=== PATIENT | female | born 1960 | race Caucasian/White ===

== ENCOUNTER 2018-01-31 05:20 | Emergency (ER) | payer MEDICARE, BC ==
[~2018-01-31] VITALS: Ht 152.4 cm; Wt 72.6 kg
[~2018-01-31 05:20] MED LIST: ANDROGEL; ANDROGEL VG; ASPIRIN325 PO; ATIVAN0.5 MG PO; AUGMENTIN 875875 MG PO; CEPHALEXIN; COLACE100 MG PO; CORTEF; CORTEF 20 MG TA20 MG PO; CRINONE1.45 GM VG; DEPO-ESTRAD5 MG/1 ML IM; DHEA25 MG PO; DICLOXACILLIN250 M1 OR; FENTANYL 1100 MCG/HR TRANSDERM; INDOMETHACIN 5050 M1 PO; INDOMETHACIN 5050 MG PO; KEFLEX; KEPPRA 500 MG500 M1 PO; MEGESTROL ACETA40 MG PO; MEGESTROL40 MG/1 M1 GT; MUCINEX600 MG PO; NICOTINE TRANSDE7 MG TD; PERCOCET 10-321 EACH PO; PREDNISONE 10 M10 MG PO; PRILOSEC 20 MG20 MG PO; REMERON15 M1 PO; THYROID; TRAZODONE HCL100 MG PO; VALIUM5 MG PO; XANAX 0.25 MG0.25 MG PO; XANAX XR2 MG PO
[2018-01-31 06:50] VITALS: BP 114/80
== END 2018-01-31 06:55 | disposition home or self-care (01) ==
LOC: M.ERS 05:20
DX: R25.2 Cramp and spasm (principal); G47.00 Insomnia, unspecified; F41.9 Anxiety disorder, unspecified; F43.10 Post-traumatic stress disorder, unspecified; F17.210 Nicotine dependence, cigarettes, uncomplicated; Z88.6 Allergy status to analgesic agent; Z88.5 Allergy status to narcotic agent

== ENCOUNTER → 2018-05-04 | Outpatient (CLI) | payer MEDICARE, BC | LOC: M.ULTRA 11:30 | DX: N63.20 Unspecified lump in the left breast, unspecified quadrant (principal); R92.8 Other abnormal and inconclusive findings on diagnostic imaging of breast ==

== ENCOUNTER → 2018-06-05 | Outpatient (CLI) | payer MEDICARE, BC | LOC: M.NUC 05-15 14:11 | DX: M50.30 Other cervical disc degeneration, unspecified cervical region (principal); M17.11 Unilateral primary osteoarthritis, right knee ==

== ENCOUNTER 2018-09-06 23:34 | Emergency (ER) | payer MEDICARE, BC ==
[~2018-09-06] VITALS: Ht 152.4 cm; Wt 63.5 kg
[2018-09-06] MEDS ORDERED: METHOCARBAMOL750 MG PO (23:52)
[2018-09-07 00:37] LABS: URINE BILIRUBIN NEGATIVE (Negative); URINE BLOOD NEGATIVE (Negative); URINE CLARITY CLEAR; URINE COLOR YELLOW; URINE GLUCOSE-RANDOM NEGATIVE (Negative); URINE KETONES NEGATIVE (Negative); URINE LEUKOCYTES-REFLEX NEGATIVE (Negative); URINE NITRITE-REFLEX NEGATIVE (Negative); URINE PROTEIN NEGATIVE (Negative); URINE UROBILINOGEN 0.2 E.U./dl (0.2-1.0)
[2018-09-07 01:39] VITALS: BP 161/87
== END 2018-09-07 01:39 | disposition home or self-care (01) ==
LOC: M.ERS 23:34
PROVIDERS: Personal Emergency Response Attendant
DX: M53.3 Sacrococcygeal disorders, not elsewhere classified (principal); M25.552 Pain in left hip; F17.210 Nicotine dependence, cigarettes, uncomplicated; F41.9 Anxiety disorder, unspecified; Z90.710 Acquired absence of both cervix and uterus; Z88.5 Allergy status to narcotic agent

== ENCOUNTER 2020-06-22 19:58 | Emergency (ER) | payer OTHER ==
[~2020-06-22] VITALS: Ht 152.4 cm; Wt 77.1 kg
[~2020-06-22 19:58] MED LIST changes: +METHOCARBAMOL750 MG PO
[2020-06-22 21:03] LABS: URINE BILIRUBIN NEGATIVE (Negative); URINE BLOOD NEGATIVE (Negative); URINE CLARITY CLEAR; URINE COLOR STRAW; URINE GLUCOSE-RANDOM NEGATIVE (Negative); URINE KETONES NEGATIVE (Negative); URINE LEUKOCYTES 1+ (Negative); URINE NITRITE NEGATIVE (Negative); URINE PROTEIN NEGATIVE (Negative); URINE SPECIFIC GRAVITY <= 1.005 (1.005-1.030); URINE UROBILINOGEN 0.2 E.U./dl (0.2-1.0)
[2020-06-22 21:12] LABS: ABSOLUTE BASOPHILS 0.1 thou/uL (0.0-0.2); ABSOLUTE EOSINOPHILS 0.3 thou/uL (0.0-0.7); ABSOLUTE LYMPHOCYTES 2.9 thou/uL (0.8-5.3); ABSOLUTE MONOCYTES 0.6 thou/uL (0.0-1.2); ABSOLUTE NEUTROPHILS 8.1 thou/uL (1.6-8.1); EOSINOPHILS 2.2 %; HEMATOCRIT 46.2 % (37.0-47.0); HEMOGLOBIN 15.8 gm/dL (12.0-15.0); LYMPHOCYTES 23.8 %; MCH 31.3 pg (26.0-34.0); MCHC 34.2 g/dL (28.0-37.0); MCV 91.4 fL (80.0-100.0); MONOCYTES 5.4 %; MPV 7.3 fl. (7.2-11.1); NUCLEATED RBCS 0 /100WBC; PLATELET COUNT* 444 thou/uL (150-400); POLYS 67.6 %; RBC 5.05 mil/uL (4.20-5.00)
[2020-06-22 21:12] LABS: BACTERIA 1-9 Few /HPF (None Seen); CASTS None Seen /LPF (None Seen); CRYSTALS None Seen /LPF (None Seen); MUCUS None Seen strn/LPF (None Seen); SQUAMOUS 4-10 Moderate /LPF (0-3); URINE RBC None Seen /HPF (0-2); URINE WBC 0-5 Rare /HPF (0-5)
[2020-06-22 21:14] LABS: CALCIUM 9.2 mg/dL (8.5-10.1); POTASSIUM 3.7 mmol/L (3.5-5.1)
[2020-06-22 21:19] LABS: ALBUMIN 4.3 g/dL (3.4-5.0); TOTAL BILIRUBIN 0.3 mg/dL (<0.1-1.0); TOTAL PROTEIN 8.4 g/dL (6.4-8.2)
[2020-06-22 23:05] VITALS: BP 165/89
== END 2020-06-22 23:14 | disposition home or self-care (01) ==
LOC: M.ERS 19:58
PROVIDERS: Emergency Medicine
DX: M25.561 Pain in right knee (principal); R60.0 Localized edema; F41.9 Anxiety disorder, unspecified; F17.210 Nicotine dependence, cigarettes, uncomplicated; Z90.710 Acquired absence of both cervix and uterus; Z88.6 Allergy status to analgesic agent

== ENCOUNTER 2020-07-11 16:17 | Emergency (ER) | payer OTHER ==
[~2020-07-11] VITALS: Ht 152.4 cm; Wt 68.0 kg
[2020-07-11 16:39] LABS: URINE BILIRUBIN NEGATIVE (Negative); URINE BLOOD NEGATIVE (Negative); URINE CLARITY CLEAR; URINE COLOR STRAW; URINE GLUCOSE-RANDOM NEGATIVE (Negative); URINE KETONES NEGATIVE (Negative); URINE LEUKOCYTES-REFLEX NEGATIVE (Negative); URINE NITRITE-REFLEX NEGATIVE (Negative); URINE PROTEIN NEGATIVE (Negative); URINE SPECIFIC GRAVITY <= 1.005 (1.005-1.030); URINE UROBILINOGEN 0.2 E.U./dl (0.2-1.0)
[2020-07-11] MEDS ORDERED: MELOXICAM15 MG PO (16:44)
[2020-07-11 16:55] LABS: ABSOLUTE BASOPHILS 0.2 thou/uL (0.0-0.2); ABSOLUTE EOSINOPHILS 0.1 thou/uL (0.0-0.7); ABSOLUTE LYMPHOCYTES 4.4 thou/uL (0.8-5.3); ABSOLUTE MONOCYTES 0.9 thou/uL (0.0-1.2); ABSOLUTE NEUTROPHILS 8.9 thou/uL (1.6-8.1); BASOPHILS 1.5 %; HEMATOCRIT 45.3 % (37.0-47.0); HEMOGLOBIN 15.1 gm/dL (12.0-15.0); LYMPHOCYTES 30.3 %; MCH 30.3 pg (26.0-34.0); MCHC 33.3 g/dL (28.0-37.0); MCV 90.9 fL (80.0-100.0); MONOCYTES 5.9 %; MPV 7.4 fl. (7.2-11.1); NUCLEATED RBCS 0 /100WBC; PLATELET COUNT* 440 thou/uL (150-400); POLYS 61.3 %; RBC 4.98 mil/uL (4.20-5.00); RDW-CV 13.1 % (10.5-14.5); WBC 14.5 thou/uL (4.0-11.0)
[2020-07-11 17:00] LABS: CALCIUM 9.7 mg/dL (8.5-10.1); POTASSIUM 3.8 mmol/L (3.5-5.1)
[2020-07-11 17:10] LABS: ALBUMIN 4.4 g/dL (3.4-5.0); TOTAL BILIRUBIN 0.3 mg/dL (<0.1-1.0); TOTAL PROTEIN 8.3 g/dL (6.4-8.2)
[2020-07-11 17:19] LABS: AMP/METHAMP Negative (Negative); BARBITURATES Negative (Negative); BENZODIAZEPINES POSITIVE (Negative); COCAINE Negative (Negative); METHADONE Negative (Negative); OPIATES POSITIVE (Negative); PCP Negative (Negative); THC Negative (Negative)
[2020-07-11] MEDS ORDERED: SUPRAX400 M1 PO (18:07)
[2020-07-11] MEDS ORDERED: AZITHROMYCIN250 MG PO (18:07)
[2020-07-11 18:30] VITALS: BP 184/102
== END 2020-07-11 18:30 | disposition home or self-care (01) ==
LOC: M.ERS 16:17
PROVIDERS: Physician Assistant
DX: N89.8 Other specified noninflammatory disorders of vagina (principal); F17.210 Nicotine dependence, cigarettes, uncomplicated; Z90.710 Acquired absence of both cervix and uterus; Z88.5 Allergy status to narcotic agent; Z79.899 Other long term (current) drug therapy

== ENCOUNTER 2020-07-13 16:17 | Emergency (ER) | payer OTHER ==
[~2020-07-13] VITALS: Ht 152.4 cm; Wt 90.7 kg
[~2020-07-13 16:17] MED LIST changes: +AZITHROMYCIN250 MG PO; +MELOXICAM15 MG PO; +SUPRAX400 M1 PO
[2020-07-13] MEDS ORDERED: [UNRECOGNIZED DRUG - OTHER] (16:33)
[2020-07-13 16:51] LABS: ABSOLUTE BASOPHILS 0.2 thou/uL (0.0-0.2); ABSOLUTE EOSINOPHILS 0.1 thou/uL (0.0-0.7); ABSOLUTE LYMPHOCYTES 3.5 thou/uL (0.8-5.3); ABSOLUTE MONOCYTES 0.7 thou/uL (0.0-1.2); ABSOLUTE NEUTROPHILS 9.3 thou/uL (1.6-8.1); BASOPHILS 1.2 %; EOSINOPHILS 0.6 %; HEMOGLOBIN 15.2 gm/dL (12.0-15.0); LYMPHOCYTES 25.6 %; MCH 30.3 pg (26.0-34.0); MCV 91.8 fL (80.0-100.0); MONOCYTES 5.3 %; MPV 7.2 fl. (7.2-11.1); NUCLEATED RBCS 0 /100WBC; PLATELET COUNT* 456 thou/uL (150-400); POLYS 67.3 %; RBC 5.01 mil/uL (4.20-5.00); WBC 13.8 thou/uL (4.0-11.0)
[2020-07-13 17:02] LABS: APTT 25.4 Seconds (25.0-31.3); PROTIME 10.7 Seconds (9.20-11.50)
[2020-07-13 17:03] LABS: CREATININE 0.9 mg/dL (0.6-1.3); POTASSIUM 3.9 mmol/L (3.5-5.1)
[2020-07-13 17:11] LABS: ALBUMIN 4.2 g/dL (3.4-5.0); TOTAL BILIRUBIN 0.4 mg/dL (<0.1-1.0); TOTAL PROTEIN 8.4 g/dL (6.4-8.2)
[2020-07-13 17:19] VITALS: BP 196/116
== END 2020-07-13 17:20 | disposition home or self-care (01) ==
LOC: M.ERS 16:17
PROVIDERS: Family Medicine
DX: I10 Essential (primary) hypertension (principal); R45.1 Restlessness and agitation; Z76.5 Malingerer [conscious simulation]; F17.210 Nicotine dependence, cigarettes, uncomplicated; Z90.710 Acquired absence of both cervix and uterus

== ENCOUNTER 2020-07-18 07:21 | Emergency (ER) | payer OTHER ==
[~2020-07-18] VITALS: Ht 152.4 cm; Wt 76.5 kg
[~2020-07-18 07:21] MED LIST changes: +[UNRECOGNIZED DRUG - OTHER]
[2020-07-18] MEDS ORDERED: SPIRONOLACTONE100 M1 PO (07:28)
[2020-07-18 08:00] LABS: ABSOLUTE BASOPHILS 0.1 thou/uL (0.0-0.2); ABSOLUTE EOSINOPHILS 0.1 thou/uL (0.0-0.7); ABSOLUTE LYMPHOCYTES 2.5 thou/uL (0.8-5.3); ABSOLUTE MONOCYTES 0.7 thou/uL (0.0-1.2); EOSINOPHILS 1.6 %; HEMATOCRIT 42.4 % (37.0-47.0); HEMOGLOBIN 14.4 gm/dL (12.0-15.0); LYMPHOCYTES 26.2 %; MCH 30.5 pg (26.0-34.0); MCHC 33.8 g/dL (28.0-37.0); MCV 90.1 fL (80.0-100.0); MPV 7.1 fl. (7.2-11.1); NUCLEATED RBCS 0 /100WBC; PLATELET COUNT* 394 thou/uL (150-400); POLYS 64.2 %; RBC 4.71 mil/uL (4.20-5.00); WBC 9.4 thou/uL (4.0-11.0)
[2020-07-18 08:12] LABS: CALCIUM 9.6 mg/dL (8.5-10.1); CREATININE 0.9 mg/dL (0.6-1.3); POTASSIUM 3.7 mmol/L (3.5-5.1)
[2020-07-18 08:17] LABS: ALBUMIN 3.8 g/dL (3.4-5.0); TOTAL BILIRUBIN 0.5 mg/dL (<0.1-1.0); TOTAL PROTEIN 7.7 g/dL (6.4-8.2)
[2020-07-18] MEDS ORDERED: MECLIZINE HCL25 M1 PO (08:45)
[2020-07-18 09:11] VITALS: BP 149/77
--- NOTE | 2020-07-19 12:13 | EKG ---
[place] [address] ELECTROCARDIOGRAM REPORT Name: MONTY BROWN Room: [facility]#: [id number] Admission: 07/18/20 Attend Phys: Discharge: 07/18/20 Date of : 58 Date of Service: 07/18/20 0833 Report #: [id number] THIS REPORT FOR: //name// [facility] ED Test Date: 2020-07-18 Test Time: 08:33:07 Pat Name: MONTY BROWN Department: Room: Gender: Residential Worker: [facility] : 1960 Requested By: Jose Reed Order Number: [id number] MD: Justin Rueda Measurements Intervals [place] Rate: 69 P: 64 UT: 144 QRS: -27 QRSD: 95 T: 53 QT: 367 QTc: 393 Interpretive Statements Sinus rhythm Probable left atrial enlargement Inferior infarct, old Baseline wander in lead(s) V1,V5 Compared to ECG 07/17/2015 09:26:37 No significant changes Electronically Signed On 07-19-2020 12:12:52 CDT by Justin Rueda [email or web address] <ELECTRONICALLY SIGNED> By: Nimo Rueda MD, FAC 07/19/20 1212 Nimo Rueda MD, [facility] /EPI
== END 2020-07-18 09:12 | disposition home or self-care (01) ==
LOC: M.ERS 07:21
PROVIDERS: Emergency Medicine Emergency Medical Services
DX: H81.12 Benign paroxysmal vertigo, left ear (principal); I25.2 Old myocardial infarction; F41.9 Anxiety disorder, unspecified; F17.210 Nicotine dependence, cigarettes, uncomplicated; Z88.6 Allergy status to analgesic agent; Z79.899 Other long term (current) drug therapy; Z90.710 Acquired absence of both cervix and uterus

== ENCOUNTER 2020-07-22 22:11 | Emergency (ER) | payer OTHER, MEDICAID ==
[~2020-07-22] VITALS: Ht 152.4 cm; Wt 63.5 kg
[~2020-07-22 22:11] MED LIST changes: +MECLIZINE HCL25 M1 PO; +SPIRONOLACTONE100 M1 PO
[2020-07-22 23:24] VITALS: BP 160/85
== END 2020-07-22 23:24 | disposition home or self-care (01) ==
LOC: M.ERS 22:11
DX: F23 Brief psychotic disorder (principal); F17.210 Nicotine dependence, cigarettes, uncomplicated; Z88.5 Allergy status to narcotic agent; Z90.710 Acquired absence of both cervix and uterus